=== PATIENT | female | born 1970 | race Caucasian/White ===

== ENCOUNTER 2021-12-05 15:38 | Outpatient (REF) | payer BC, SELFPAY ==
--- NOTE | ~2021-12-05 | MR_ITS ---
EXAMINATION: MR KNEE WITHOUT CONTRAST, RIGHT CLINICAL INFORMATION: Right knee pain COMPARISON: None TECHNIQUE: MRI of the knee without contrast was performed using routine sequences on a high-field scanner. FINDINGS: MENISCI: Medial Meniscus: Intact. Degenerative signal within the posterior horn. Lateral Meniscus: Intact LIGAMENTS: Cruciate: Intermediate signal of the proximal PCL with adjacent soft tissue edema could represent mucoid degeneration and/or a mild sprain. The anterior cruciate ligament is intact. Collateral: Intact EXTENSOR MECHANISM: Intact ARTICULAR CARTILAGE/BONE: Patellofemoral Compartment: Normal Medial Compartment: Normal Lateral Compartment: Normal JOINT FLUID AND BURSAE: No joint effusion. MR/MR knee RT wo con IMPRESSION: 1. No meniscal tear. 2. Intermediate signal of the proximal PCL with adjacent soft tissue edema could represent mucoid degeneration and/or a mild sprain.
== END 2021-12-05 15:39 | disposition home or self-care (01) ==
LOC: HO.MRI 15:38
PROVIDERS: PCP Internal Medicine; Visit Provider Student in an Organized Health Care Education/Training Program
DX: M23.90 Unspecified internal derangement of unspecified knee (principal)
CPT/HCPCS: 73721